=== PATIENT | female | born 1950 | race Caucasian/White ===

== ENCOUNTER 2021-06-16 08:01 | Day surgery (SDC) | payer MEDICARE, BC ==
[2021-06-16] MEDS ORDERED: Ketamine 500 MG/5 ML MDV IV SCH (08:15)
[2021-06-16] MEDS ORDERED: Scopolamine 1.5 MG Transdermal Patch TOP SCH (08:15)
[2021-06-16] MEDS ORDERED: Ketamine 16 MG in Sodium Chloride 0.9% 19.84 ML IV SCH (08:15)
[2021-06-16] MEDS ORDERED: Ropivacaine 28 ML, dexAMETHasone 8 MG, EPINEPHrine 0.4 MG, Sodium Chloride 0.9% 49.6 ML NERVRT SCH ×4 (08:15)
[2021-06-16] MEDS: Dextrose 5%-Lactated Ringers 1,000 ML IV SCH ×2 (09:01→17:15)
[2021-06-16] MEDS ORDERED: Propofol 200 MG/20 ML SDV ONE (09:13)
[2021-06-16] MEDS ORDERED: Succinylcholine 200 MG/10 ML MDV ONE (09:13)
[2021-06-16] MEDS ORDERED: Neostigmine Methylsulfate 1 MG/ML 5 ML Syringe ONE (09:13)
[2021-06-16] MEDS ORDERED: fentaNYL 250 MCG/5 ML SDV ONE (09:13)
[2021-06-16] MEDS ORDERED: Rocuronium 50 MG/5 ML Vial ONE (09:13)
[2021-06-16] MEDS ORDERED: Glycopyrrolate 0.2 MG/ML 5 ML MDV ONE (09:13)
[2021-06-16] MEDS ORDERED: Midazolam 1 MG/ML 2 ML SDV ONE (09:13)
[2021-06-16] MEDS ORDERED: Ondansetron 4 MG/2 ML SDV ONE (09:13)
[2021-06-16] MEDS ORDERED: Dexamethasone 4 MG/ML SDV ONE (09:13)
[2021-06-16] MEDS ORDERED: Ampicillin/Sulbactam Na 3 GM in Sodium Chloride 0.9% 100 ML IV ONE (09:30)
--- NOTE | 2021-06-16 09:47 | PCM.HP.2 ---
H&P History of Present Illness - General Date of Service: 06/16/21 Admit Problem/Dx: Acute Cholecystitis Source of Information: Patient History Limitations: Reports: No Limitations - History of Present Illness Initial Comments - Free Text/Narative: Sudden onset of right upper quadrant abdominal pain yesterday. Patient was seen in the clinic and an US showed acute cholecystitis She is here today to have her gallbladder removed. Location: Reports: Abdomen Worsens with: Reports: Eating Context: Reports: Sick Contact Associated Symptoms: Reports: Fever/Chills, Loss of Appetite Middle Abdominal Pain Score (Numeric/FACES): 5 - Related Data Allergies/Adverse Reactions: Allergies Allergy/AdvReac Type Severity Reaction Status Date / Time erythromycin base Allergy Other Verified 06/16/21 08:19 Sulfa (Sulfonamide Allergy Rash Verified 06/16/21 08:19 Antibiotics) Home Medications: Home Meds Acetaminophen/HYDROcodone [HYDROcodone-Acetaminophen 5-325 MG *] 1 tab PO Q4H PRN 06/15/21 [History] Amoxicillin/Potassium Clav [Augmentin 875-125 Tablet] 1 each PO BID 06/15/21 [History] Ondansetron [Zofran ODT] 4 mg PO Q4H PRN 06/15/21 [History] Levothyroxine [Synthroid] 50 mcg PO DAILY 06/16/21 [History] estradioL [Estradiol] 0.5 mg PO BEDTIME 06/16/21 [History] Past Medical History HEENT History: Reports: Impaired Vision Respiratory History: Reports: Other (See Below) Other Respiratory History: atypical asthma [employer] History: Reports: Endocrine/Metabolic History: Reports: Hypoparathyroidism Hematologic History: Reports: Other (See Below) Other Hematologic History: antiplasmosis - Infectious Disease History Infectious Disease History: Reports: Chicken Pox, Measles, Mumps, Rubella - Past Surgical History HEENT Surgical History: Reports: None Respiratory Surgical History: Reports: None GI Surgical History: Reports: Colonoscopy Social & Family History - Tobacco Use Tobacco Use Status *Q: Never Tobacco User Second Hand Smoke Exposure: No - Caffeine Use Caffeine Use: Reports: Coffee - Recreational Drug Use Recreational Drug Use: No H&P Review of Systems - Review of Systems: Review Of Systems: See Below General: Reports: Fever, Fatigue, Decreased Appetite HEENT: Reports: No Symptoms Pulmonary: Reports: No Symptoms Cardiovascular: Reports: No Symptoms Gastrointestinal: Reports: Abdominal Pain (RUQ), Decreased Appetite Genitourinary: Reports: No Symptoms Musculoskeletal: Reports: No Symptoms Skin: Reports: No Symptoms Psychiatric: Reports: No Symptoms Neurological: Reports: No Symptoms Hematologic/Lymphatic: Reports: No Symptoms Immunologic: Reports: No Symptoms Exam - Exam Exam: See Below - Vital Signs Vital Signs: Last Vital Signs Temp 97.0 F 06/16/21 08:47 Pulse 86 06/16/21 08:47 Resp 16 06/16/21 08:47 BP 111/76 06/16/21 08:47 Pulse Ox 96 06/16/21 08:47 Weight: 122 lb - Exam General: Alert, Oriented, Mild Distress HEENT: PERRLA Neck: Supple, Trachea Midline Lungs: Clear to Auscultation, Normal Respiratory Effort Cardiovascular: Regular Rate, Regular Rhythm GI/Abdominal Exam: Soft, No Distention, Tender (RUQ) (Female) Exam: Deferred Rectal (Female) Exam: Deferred Back Exam: Normal Inspection Extremities: Normal Inspection, Normal Range of Motion Skin: Warm, Dry, Intact Neurological: Cranial Nerves Intact, Reflexes Equal Bilateral Neuro Extensive - Mental Status: Alert, Oriented x3, Normal Mood/Affect, Normal Cognition, Memory Intact Neuro Extensive - Motor, Sensory, Reflexes: CN II-XII Intact Psychiatric: Alert, Normal Affect, Normal Mood Sepsis Event Note - Focused Exam Vital Signs: Vital Signs Temp Pulse Resp BP Pulse Ox 06/16/21 08:47 97.0 F 86 16 111/76 96 - Problem List (1) Acute cholecystitis SNOMED Code(s): 76571786 ICD Code: K81.0 - ACUTE CHOLECYSTITIS Status: Acute Current Visit: Yes Problem List Initiated/Reviewed/Updated: Yes Orders Last 24hrs: Active Orders 24 hr Category Date Time Status Ampicillin/Sulbactam Na [Unasyn] 3 gm Med 06/16/21 09:30 Active Sodium Chloride 0.9% [Normal Saline] 100 ml IV ONETIME Dextrose 5%-Lactated Ringers 1,000 ml Med 06/16/21 09:00 Active IV ASDIRECTED Ketamine [Ketalar] Med 06/16/21 08:15 Active 26 mg IV ASDIRECTED Ketamine [Ketalar] 16 mg Med 06/16/21 08:15 Active Sodium Chloride 0.9% [Normal Saline] 19.84 ml IV ASDIRECTED Ropivacaine [Naropin 0.5%] 28 ml Med 06/16/21 08:15 Active dexAMETHasone [Decadron] 8 mg EPINEPHrine [Adrenalin] 0.4 mg Sodium Chloride 0.9% [Normal Saline] 49.6 ml NERVRT ASDIRECTED Scopolamine [Transderm-Scop] Med 06/16/21 08:15 Active 1.5 mg TOP Q72H SCD [Sequential Compression Device] [OM.PC] Routine Oth 06/16/21 08:30 Ordered Medication Orders Ropivacaine 28 ml/Dexamethasone 8 mg/Epinephrine HCl 0.4 mg/ Sodium Chloride 49.6 ml 0 ml NERVRT ASDIRECTED SAKINA Ketamine HCl 16 mg/ Sodium (Chloride) 20 mls @ 20 mls/hr IV ASDIRECTED SAKINA Dextrose/Lactated Ringer's (Dextrose 5%-Lactated Ringers) 1,000 mls @ 100 mls/hr IV ASDIRECTED SAKINA Last Admin: 06/16/21 09:01 Dose: 100 mls/hr Documented by: DONTA Ampicillin Sodium/Sulbactam (Sodium 3 gm/ Sodium Chloride) 100 mls @ 200 mls/hr IV ONETIME ONE Stop: 06/16/21 09:59 Ketamine HCl (Ketamine 500 Mg/5 Ml Mdv) 26 mg IV ASDIRECTED [facility] Scopolamine (Scopolamine 1.5 Mg Transdermal Patch) 1.5 mg TOP Q72H [facility] Stop: 06/18/21 10:00 Last Admin: 06/16/21 09:06 Dose: 1.5 mg Documented by: DONTA Assessment: Acute Cholecystitis Plan: Laparoscopic possible Open Cholecystectomy - General Anesthesia - Case to Follow - 06/16/21 - Torsten Bruno MD After preoperative evaluation and discussion of possible risks and complications patient wishes to proceed with surgical procedure. Plan discharge in AM Olga Farley PA-C 06/16/2021 - Mortality Measure Prognosis:: Good
[2021-06-16] MEDS ORDERED: Bupivacaine 0.5%/EPINEPHrine 1:200,000 50 ML MDV INJECT ONE (13:54)
[2021-06-16] MEDS ORDERED: Lactated Ringers 1,000 ML ONE (14:07)
[2021-06-16] MEDS ORDERED: Ondansetron 4 MG/2 ML SDV IVPUSH PRN (16:00)
[2021-06-16] MEDS ORDERED: HYDROmorphone 1 MG/ML Syringe IV PRN (16:00)
[2021-06-16] MEDS ORDERED: Pantoprazole 40 MG Vial IVPUSH SCH (16:00)
[2021-06-16] MEDS ORDERED: HYDROmorphone 0.5 MG/0.5 ML Syringe IVPUSH PRN (16:00)
[2021-06-16] MEDS ORDERED: CHECK SCOPOLAMINE PATCH TOP SCH (17:00)
[2021-06-16] MEDS: Acetaminophen/HYDROcodone 325-5 MG Tab PO PRN ×2 (18:41→23:18)
[2021-06-16] MEDS: Ampicillin/Sulbactam Na 3 GM in Sodium Chloride 0.9% 100 ML IV SCH (20:12)
[2021-06-16] MEDS ORDERED: Estradiol 0.5 MG Tab PO SCH (21:00)
[2021-06-17] MEDS: Ampicillin/Sulbactam Na 3 GM in Sodium Chloride 0.9% 100 ML IV SCH ×2 (02:41→07:48)
[2021-06-17] MEDS: Dextrose 5%-Lactated Ringers 1,000 ML IV SCH (02:46)
[2021-06-17] MEDS ORDERED: Levothyroxine 50 MCG Tab PO SCH (07:30)
[2021-06-17] MEDS: Acetaminophen/HYDROcodone 325-5 MG Tab PO PRN (07:34)
--- NOTE | 2021-06-20 07:15 | DISCH ---
ADMISSION DIAGNOSIS: Acute cholecystitis. DISCHARGE DIAGNOSES: Laparoscopic cholecystectomy and repair of incarcerated umbilical hernia. POSTOPERATIVE DIAGNOSES: 1. Acute cholecystitis, cholelithiasis. 2. Incarcerated umbilical hernia. HISTORY: Makayla Florez is visiting in the [place] area. She is a pleasant 70-year- old female who presented to the clinic with right upper quadrant pain. After preoperative evaluation and discussion of possible risks and possible complications, she wished to proceed with surgical procedure. HOSPITAL COURSE: Makayla had her surgery on 06/16/2021. She had no complications. On postoperative day #1, she was able to be discharged to home. PHYSICAL EXAMINATION: GENERAL: Makayla is a pleasant 70-year-old female. VITAL SIGNS: Height is 5 feet 4 inches, weight is 122 pounds, BMI is 20.9. TPR is 98.5, 74, 18, blood pressure 125/59. HEENT: Negative. NECK: Supple. HEART: Regular rate and rhythm. LUNGS: Clear. ABDOMEN: Dressings dry and intact. JEROME drain is intact but will be removed prior to discharge. It is draining a light pink drainage. EXTREMITIES: Without peripheral edema. DISPOSITION: Discharged to home. CONDITION: Stable and improving. FOLLOWUP: Appointment with Olga Farley PA-C, on 06/24/2021 at 10 a.m. HOME MEDICATIONS: She was given Augmentin 875 mg b.i.d. for 5 days a day prior to surgery, 06/15/2021. She is to restart that. She also was given hydrocodone/acetaminophen 5/325 mg 1 tablet oral every 4 hours p.r.n. pain. She is to resume that and resume her home medication of levothyroxine 50 mcg p.o. daily, Zofran ODT 4 mg p.o. q.4 hours p.r.n. nausea, estradiol 0.5 mg p.o. at bedtime. DIET: Regular diet as tolerated. Drink 8 to 10 glasses of water a day. ACTIVITY: No lifting greater than 10 pounds for [address] for 1 week or within 8 hours of pain medication. DISCHARGE INSTRUCTIONS: Shower/bathing: May shower. Wound incision care: Keep operative site clean and dry. Wear abdominal binder for 2 weeks as tolerated. Notify provider if any fever, increased pain, swelling, redness, drainage, nausea, vomiting. OTHER INSTRUCTIONS: Use incentive spirometer 10 times every hour while awake for 1 week. /[id number]
--- NOTE | 2021-06-20 14:45 | OR ---
DATE OF PROCEDURE: 06/16/2021 SURGEON: Torsten Bruno MD PREOPERATIVE DIAGNOSIS: Acute cholecystitis. POSTOPERATIVE DIAGNOSES: 1. Acute cholecystitis and cholelithiasis. 2. Incarcerated umbilical hernia. OPERATIVE PROCEDURES: Diagnostic laparoscopy with: 1. Cholecystectomy (84286). 2. Repair of incarcerated umbilical hernia (54394). ANESTHESIA: General. PAPER BAG MAKING MACHINIST: Olga Farley PA-C INDICATIONS FOR PROCEDURE: This is a 70-year-old presenting with a roughly 4 to 5 day history of increasing right upper quadrant pain. She was seen in walk-in clinic and subsequently in the surgery clinic yesterday and was found on workup to have acute cholecystitis. Yesterday, there were no present beds available, but there are today, and she will be admitted at this time for a cholecystectomy. Potential risks of the procedure including bleeding, infection, injury to underlying viscera, and problems with stones migrating into the common bile duct requiring additional procedures for correction were gone over, and the patient wishes to proceed. DETAILS OF PROCEDURE: The patient was taken to the operating room and placed in a supine position. After general endotracheal anesthesia was induced, the abdomen was prepped and draped. The patient was noted to have a small umbilical hernia which was at this point not reducible, likely containing some preperitoneal fat. Transverse incision just below the umbilicus was made and the peritoneal cavity entered with a Veress needle through the herniation and inflated to 15 mmHg of CO2. Through that incision, then the 12 mm trocar was then placed again through the area of the hernia, thus reducing the preperitoneal fat in the process of passing the trocar. A 12 mm epigastric trocar was then placed along with 5 mm right abdominal trocar. As expected, the patient had marked acute cholecystitis with the gallbladder being nolen, thick walled, very edematous, and covered with some fibrinous exudate. amount of adhesions were then taken down bluntly and dissection with Harmonic Scalpel began on the gallbladder neck and continued down along the gallbladder neck and cystic duct junction. Once that area as well as the adjacent cystic artery were identified, both were taken with CHELLE stas, and at that point, the gallbladder was dissected off the gallbladder bed using Harmonic scalpel and delivered through the epigastric trocar site. It contained multiple stones more or less filling the entire gallbladder which were taken out piecemeal through the epigastric trocar site with the gallbladder neck above the level of the incision. At this point, no further problems were noted. No bile leaks or bleeding were noted. A single Benny-Tucker drain was taken out through the right lateral trocar site and positioned into the area of the gallbladder bed. The camera port was then brought back up to the epigastric site, and using the laparoscopic suture passer, after removal of the trocar placed through the umbilical hernia, the hernia was repaired with 0 Vicryl sutures placed with the laparoscopic suture device, closing this with a transverse orientation. Upon completion of this, the remaining trocars were removed and the peritoneal cavity deflated. The fascia at that site was also closed with 0 Vicryl stitch and the skin at each level closed with 4-0 Vicryl skin stitch. Prior to closure, bilateral transversus abdominis plane blocks had been placed, and the incisions were initially anesthetized with 1% lidocaine mixed with Marcaine and the patient taken to the recovery room in satisfactory condition. There were no evident complications. Physician pharmacy sales assistant, Olga Farley, played an essential role in assisting in this case, helping to position the patient, retract structures as needed, as well as suturing and cutting sutures when indicated. Her presence improved the patient's safety and decreased the operative time. Torsten Bruno MD /[id number]
== END 2021-06-17 09:20 | disposition home or self-care (01) ==
LOC: JP.SDS 08:01 → JP.MS 14:50 → JP.SDS 06-17 09:20
PROVIDERS: ATTEND Surgery
DX: K80.12 Calculus of gallbladder with acute and chronic cholecystitis without obstruction (principal); K42.0 Umbilical hernia with obstruction, without gangrene; E20.9 Hypoparathyroidism, unspecified; Z79.899 Other long term (current) drug therapy; Z88.2 Allergy status to sulfonamides; Z88.8 Allergy status to other drugs, medicaments and biological substances
CPT/HCPCS: 36415; 47562; 82247; 84075; 85025; A9270; C9113; J0171; J0295; J0330; J1100; J2405; J2704; J2710; J2795; J3010; J3490; J7120; J7121; J2250